=== PATIENT | female | born 1965 | race Hispanic/Latino ===

== ENCOUNTER 2017-02-01 01:30 | Inpatient (IN) | payer MEDICAID ==
--- NOTE | 2017-02-01 02:02 | C.PDOC ---
History Of Present Illness 51 y/o female presents to ED for psych admission from [facility] where she was medically cleared. Patient accepted by Dr. Cannon. Denies any acute complaints on arrival. Time Seen by Provider: 02/01/17 02:00 Chief Complaint (Nursing): Psychiatric Evaluation History Per: Patient History/Exam Limitations: no limitations Current Symptoms Are (Timing): Still Present Modifying Factor(s): None Recent travel outside of the [place]: No Past Medical History Reviewed: Historical Data, Nursing Documentation, Vital Signs Vital Signs: Last Vital Signs Temp 98 F 02/01/17 01:36 Pulse 63 02/01/17 01:36 Resp 20 02/01/17 01:36 BP 122/75 02/01/17 01:36 Pulse Ox 98 02/01/17 02:01 - Medical History PMH: Anxiety, Bipolar Disorder Surgical History: Cholecystectomy, Tonsillectomy Family History: States: Unknown Family Hx - Social History Hx Alcohol Use: No Hx Substance Use: No Review Of Systems Constitutional: Negative for: Fever, Chills Cardiovascular: Negative for: Chest Pain Respiratory: Negative for: Shortness of Breath Gastrointestinal: Negative for: Nausea, Vomiting Skin: Negative for: Rash Physical Exam - Physical Exam Appears: Non-toxic, No Acute Distress Skin: Warm, Dry Head: Atraumatic, Normacephalic Chest: Symmetrical Cardiovascular: Rhythm Regular Respiratory: No Rales, No Rhonchi, No Wheezing Extremity: Normal ROM, Capillary Refill (< 2 sec. ) Neurological/Psych: Oriented x3, Normal Speech ED Course And Treatment O2 Sat by Pulse Oximetry: 98 (RA) Pulse Ox Interpretation: Normal Disposition Discussed With : Junaid Cannon Comment: accepted the pt on his service and took over hte care at 2AM Doctor Will See Patient In The: Hospital Counseled Patient/Family Regarding: Studies Performed, Diagnosis - Disposition Disposition: HOSPITALIZED Disposition Time: 02:01 Condition: FAIR - POA Present On Arrival: None - Clinical Impression Clinical Impression: Bipolar 1 disorder, Anxiety - Scribe Statement The provider has reviewed the documentation as recorded by the Anitra Madnujano Provider Scribe Attestation: All medical record entries made by the Scribe were at my direction and personally dictated by me. I have reviewed the chart and agree that the record accurately reflects my personal performance of the history, physical exam, medical decision making, and the department course for this patient. I have also personally directed, reviewed, and agree with the discharge instructions and disposition. Decision To Admit - Pt Status Changed To: Hospital Disposition Of: Inpatient - Admit Certification Admit to Inpatient:: After my assessment, the patient will require hospitalization for at least two midnights. This is because of the severity of symptoms shown, intensity of services needed, and/or the medical risk in this patient being treated as an outpatient. - InPatient: Physician Admission Certification: I certify that this patient requires 2 or more midnights of care for the following reason:: After my assessment, the patient will require hospitalization for at least two midnights. This is because of the severity of symptoms shown, intensity of services needed, and/or the medical risk in this patient being treated as an outpatient. - . Bed Request Type: Psychiatry Admitting Physician: Junaid Cannon Patient Diagnosis: Bipolar 1 disorder, Anxiety
[2017-02-01] MEDS ORDERED: Pneumococcal 23-Valent Vaccine IM ONE (04:21)
--- NOTE | 2017-02-01 13:26 | PCM.PSYCH ---
Initial Psychiatric Evaluation - Initial Psychiatric Evaluation Type of Admission: Voluntary Legal Status: Capacity Chief Complaint (in patient's own words): "I have depression and anxiety" History of Present Illness and Precipitating Events: The patient is seen, chart reviewed and case discussed. This is a 51-year-old female, with 3 children, unemployed, living with and 2 younger children. The patient is here after she felt very depressed and suicidal and anxious. She claims that she had started Lexapro several years ago and last year decided to come off and she claims it was done too fast and she went down to 5 mg in June and then by cutting in half every week she stopped it around December and then she got extremely sick. She claims that she started to feel the withdrawals even back in September and then another doctor gave her some Ativan and than gabapentin but they did not help much. She reports extreme anxiety, tremors, feeling nauseous, headaches and several other somatic symptoms as part of her withdrawal syndrome. She denies feeling acutely suicidal and has no psychotic or manic symptoms. She denies drug or alcohol use. Past psych history: One admission many years ago with depression. 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 She is also not sure if she has hyperthyroidism or not because she had mixed results. She also claims she has frequent UTIs but it was not worked up. Current Medications: Active Medications Generic Name Dose Route Start Last Admin Trade Name Freq PRN Reason Stop Dose Admin Fluoxetine HCl 10 mg 02/01/17 13:00 Prozac PO DAILY SATNAM Gabapentin 100 mg 02/01/17 22:00 Neurontin PO HS SATNAM Hydroxyzine HCl 50 mg 02/01/17 09:38 Atarax PO Q6H PRN Anxiety Lorazepam 0.5 mg 02/01/17 12:46 Ativan PO Q8H PRN SEVERE Anxiety Trazodone HCl 50 mg 02/01/17 22:00 Desyrel PO HS PRN Insomnia Past Psychiatric History - Past Psychiatric History Previous Treatment History: Inpatient Pertinent Medical Hx (Current Medical&Sleep Prob, Allergies): Allergies Allergy/AdvReac Type Severity Reaction Status Date / Time Penicillins Allergy Verified 02/01/17 01:47 Escitalopram [Lexapro] 10 mg PO DAILY 02/01/17 Gabapentin [Neurontin] 100 mg PO DAILY 02/01/17 Review of Systems - Neurological Neurological: UNREMARKABLE - Psychiatric Psychiatric: Abnormal Sleep Pattern, Anxiety, Depression, Difficulty Concentrating, Irritability. absent: Hallucinations, Homicidal Ideation, Suicidal Ideation Mental Status Examination - Personal Presentation Personal Presentation: Looks stated age - Affect Affect: Broad - Motor Activity Motor Activity: Calm - Reliability in Providing Information Reliability in Providing Information: Good - Speech Speech: Organized - Mood Mood: Anxious - Formal Thought Process Formal Thought Process: No Impairment - Cognitive Functions Orientation: Person, Place, Situation, Time Sensorium: Alert Attention/Concentration: Attentive Estimate of Intelligence: Average Judgement: Intact, as evidence by: Insight regarding need for hospitalization Memory: Recent intact, as evidence by: Ability to recall events of the day, Remote intact, as evidenced by: Abilit to recall sig. life events - Risk Risk: Diminished functioning - Strength & Assets Inventory Strength & Assets Inventory: Cooperative - Limitations Limitations: Living alone DSM 5 DX - DSM 5 DSM 5 Diagnosis: Major depression, recurrent, moderate Generalized Anxiety d/o r/o Serotonin withdrawal syndrome - Recommended/Plan of Treatment Treatment Recommendations and Plan of Treatment: Prozac to replace lexapro due to low risk of wdw gabapetin and prn ativan for anxiety (or atarax for moderate) CBT and relaxation skills training Support and psychoed repeat [facility], [facility] TFTs Collateral info 32 min Projected ELOS: 4 days Prognosis: good Discharge Plan and Discharge Criteria: No severe sxs outpt psych referral
[2017-02-02 11:09] LABS: RBC URINE 16 /hpf (0-3); URINE BILIRUBIN NEGATIVE (NEGATIVE); URINE CALCIUM OXALATE CRYSTALS OCC /hpf (<OCC); URINE COLOR Yellow (YELLOW); URINE GLUCOSE (UA) NORMAL (Normal); URINE KETONE TRACE mg/dL (NEGATIVE); URINE LEUKOCYTE ESTERASE NEG Leu/uL (Negative); URINE PROTEIN NEGATIVE (NEGATIVE); WBC URINE 3 /hpf (0-5)
[2017-02-02 11:10] LABS: URINE BLOOD 1+ (NEGATIVE)
--- NOTE | 2017-02-02 17:11 | PCM.PYCHPN ---
Psychiatric Progress Note - Psychiatric Progress Note Patient seen today, length of contact: 15 minutes Patient Chief Complaint: "I am very very anxious" Problems Identified/Issues Discussed: The pt is seen, chart reviewed and case discussed. Pt appeared tearful and anxious. Pt is complaining of shakes nausea and gagging. Pt denies suicidal or homicidal ideations, visual or auditory hallucinations or persecutory delusions. Will be going to [facility] after discharge. SSRI discontinuation syndrome discussed. Prozac will also be stopped but it causes that problem the least. Medication Change: Yes (start prozac) Medical Record Reviewed: Yes Mental Status Examination - Cognitive Function Orientation: Person, Place, Situation, Time Memory: Intact Attention: WNL Concentration: Poor Association: WNL Fund of Knowledge: WNL - Mood Mood: Anxious - Affect Affect: Broad - Speech Speech: Appropriate - Formal Thought Process Formal Thought Process: No Impairment - Suicidal Ideation Suicidal Ideation: No - Homicidal Ideation Homicidal Ideation: No Goal/Treatment Plan - Goal/Treatment Plan Need for Continued Stay: Discharge may exacerbated symptoms, Severe functional impairment Progress Toward Problem(s) and Goals/Treatment Plan: Prozac to replace lexapro due to low risk of wdw gabapetin and prn ativan for anxiety (or atarax for moderate) CBT and relaxation skills training Support and psychoed repeat [facility]AMIN[facility] QUIRO[facility] Collateral info Estimated Date of D/C: 02/07/17
[2017-02-03] MEDS ORDERED: Magnesium Hydroxide Susp 30 ml UD PO ONE (12:53)
--- NOTE | 2017-02-03 15:46 | PCM.PYCHPN ---
Psychiatric Progress Note - Psychiatric Progress Note Patient seen today, length of contact: 15 minutes Patient Chief Complaint: "I am much better today" Problems Identified/Issues Discussed: The pt is seen, chart reviewed and case discussed. Pt is doing better, She slept well and her symptoms are resolving. She denies visual or auditory hallucinations, suicidal or homicidal ideations or persecutory delusions. Pt denies medication side effects. Will be going to [facility] after discharge. SSRI discontinuation syndrome discussed. Medication Change: Yes (start prozac) Medical Record Reviewed: Yes Mental Status Examination - Cognitive Function Orientation: Person, Place, Situation, Time Memory: Intact Attention: WNL Concentration: WNL Association: WNL Fund of Knowledge: WNL - Mood Mood: Neutral - Affect Affect: Broad - Speech Speech: Appropriate - Formal Thought Process Formal Thought Process: No Impairment - Suicidal Ideation Suicidal Ideation: No - Homicidal Ideation Homicidal Ideation: No Goal/Treatment Plan - Goal/Treatment Plan Need for Continued Stay: Discharge may exacerbated symptoms, Severe functional impairment Progress Toward Problem(s) and Goals/Treatment Plan: Prozac to replace lexapro due to low risk of wdw gabapetin and prn ativan for anxiety (or atarax for moderate) CBT and relaxation skills training Support and psychoed Video Intern called her with permission and left a vm Estimated Date of D/C: 02/07/17
[2017-02-04 07:28] VITALS: TEMP 98.1; O2SAT 99
[2017-02-04 09:01] LABS: FREE T4 1.01 ng/dL (0.78-2.19)
[2017-02-04 09:14] LABS: THYROID STIMULATING HORMONE 1.46 mIU/L (0.46-4.68)
--- NOTE | 2017-02-04 16:23 | PCM.PYCHPN ---
Psychiatric Progress Note - Psychiatric Progress Note Patient seen today, length of contact: 15 minutes Patient Chief Complaint: "I am much better today" Problems Identified/Issues Discussed: The pt is seen, chart reviewed and case discussed. Pt states that she is feeling good today. She slept well, and currently has no symptoms. Pt denies auditory or visual hallucinations, suicidal or homicidal ideations or persecutory delusions. She denies medication side effects and is going home after discharge. Medication Change: Yes (start prozac) Medical Record Reviewed: Yes Mental Status Examination - Cognitive Function Orientation: Person, Place, Situation, Time Memory: Intact Attention: WNL Concentration: WNL Association: WNL Fund of Knowledge: WNL - Mood Mood: Neutral - Affect Affect: Broad - Speech Speech: Appropriate - Formal Thought Process Formal Thought Process: No Impairment - Suicidal Ideation Suicidal Ideation: No - Homicidal Ideation Homicidal Ideation: No Goal/Treatment Plan - Goal/Treatment Plan Need for Continued Stay: Discharge may exacerbated symptoms, Severe functional impairment Progress Toward Problem(s) and Goals/Treatment Plan: Prozac to replace lexapro due to low risk of wdw gabapetin and prn ativan for anxiety (or atarax for moderate) CBT and relaxation skills training Support and psychoed Manager State called her with permission and left a vm Estimated Date of D/C: 02/06/17
--- NOTE | 2017-02-05 14:41 | PCM.PYCHPN ---
Psychiatric Progress Note - Psychiatric Progress Note Patient seen today, length of contact: 16 min Patient Chief Complaint: "I am OK" Problems Identified/Issues Discussed: The pt is seen, chart reviewed, case discussed with staff. The pt is compliant with medications and reports no side-effects. Symptoms are improving but needs more time to stabilize. After care discussed, support and psychoeducation given. Medication Change: No Medical Record Reviewed: Yes Mental Status Examination - Cognitive Function Orientation: Person, Place, Situation, Time Memory: Intact Attention: WNL Concentration: WNL Association: WNL Fund of Knowledge: WNL - Mood Mood: Neutral - Affect Affect: Broad - Speech Speech: Appropriate - Formal Thought Process Formal Thought Process: No Impairment - Suicidal Ideation Suicidal Ideation: No - Homicidal Ideation Homicidal Ideation: No Goal/Treatment Plan - Goal/Treatment Plan Need for Continued Stay: Discharge may exacerbated symptoms, Severe functional impairment Progress Toward Problem(s) and Goals/Treatment Plan: Prozac to replace lexapro due to low risk of wdw gabapetin and prn ativan for anxiety (or atarax for moderate) CBT and relaxation skills training Support and psychoed [employer] Supervisor called her with permission and left a vm Estimated Date of D/C: 02/06/17
[2017-02-06 07:46] VITALS: BP 132/87; PULSE 67; RESP 18
--- NOTE | 2017-02-06 09:25 | PCM.PYCHDC ---
Mental Status Examination - Mental Status Examination Orientation: Person, Place, Situation, Time Memory: Impaired Mood: Anxious Speech: Appropriate Attention: WNL Concentration: WNL Association: WNL Fund of Knowledge: WNL Formal Thought Process: No Impairment Suicidal Ideation: No Current Homicidal Ideation?: No Discharge Summary - Discharge Note Reason for Hospitalization: Severe depressive sxs and anxiety, SI. Consultations:: List each consultation separately and include: 1. Reason for request. 2. Findings. 3. Follow-up Summary of Hospital Course include:: 1. Description of specific treatment plan utilized for patients during their course of treatmen. 2. Summarize the time- course for resolution of acute symptoms and/or regressed behaviors. 3. Describe issues identified and worked on during hospitalization. 4. Describe medication utilized. 5. Describe medical problems identified and treated. 6. Reassessment of suicide risk Summary of Hospital Course: The patient is seen, chart reviewed and case discussed. On admission: This is a 51-year-old female, with 3 children, unemployed, living with and 2 younger children. The patient is here after she felt very depressed and suicidal and anxious. She claims that she had started Lexapro several years ago and last year decided to come off and she claims it was done too fast and she went down to 5 mg in June and then by cutting in half every week she stopped it around December and then she got extremely sick. She claims that she started to feel the withdrawals even back in September and then another doctor gave her some Ativan and than gabapentin but they did not help much. She reports extreme anxiety, tremors, feeling nauseous, headaches and several other somatic symptoms as part of her withdrawal syndrome. She denies feeling acutely suicidal and has no psychotic or manic symptoms. She denies drug or alcohol use. Past psych history: One admission many years ago with depression. 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 She is also not sure if she has hyperthyroidism or not because she had mixed results. She also claims she has frequent UTIs but it was not worked up. Hospital course: The pt was admitted and started on treatment with psychotherapy, support, psychoeducation and medications. CBT used. How to deal with dyscontinuation syndrome discussed. She is switched to Prozac which never causes wdw due to very long half-life. The pt attended groups and activities, as well as milieu therapy. All the risks and benefits of medications are discussed and the patient understood and agreed. After care discussed with the patient. She went to the same clinic. - Final Diagnosis (DSM 5) Condition upon Discharge: IMPROVED DSM 5: Major depression, recurrent, moderate Generalized Anxiety d/o r/o Serotonin withdrawal syndrome Disposition: HOME/ ROUTINE Follow-up Treatment Plan: Continue below medications after discharge. Follow after care plan as discussed. She will attend her outpatient program and psychiatrist in her town. Use relapse prevention skills Return to ER or call 911 if suicidal, homicidal or symptoms relapse. Stay away from stress, alcohol and drugs. How to wean off from Prozac discussed: 2 weeks one pill, then 2 weeks every other day, then every third day and stop. She is advised to use as needed meds if she happens to have wdw sxs, and reassurance given that this is temporary Prescriptions/Medication Reconciliation: FLUoxetine [Prozac] 10 mg PO DAILY #30 cap traZODone [Desyrel] 50 mg PO HS PRN #30 tab PRN Reason: Insomnia - Smoking Cessation Smoking Cessation Medication prescribed: No - Antipsychotic Medications Pt discharged on 2 or more routine antipsychotic medications: No
== END 2017-02-06 11:42 | disposition home or self-care (01) | DRG 430 ==
LOC: C.ER 01:30 → C.5E 02:02
PROVIDERS: ADMIT Psychiatry & Neurology Psychiatry; ATTEND Psychiatry & Neurology Psychiatry
PROC: GZ3ZZZZ Medication Management (ICD-10-PCS; principal; 2017-02-01)
PROC: GZ56ZZZ Individual Psychotherapy, Supportive (ICD-10-PCS; 2017-02-01)
DX: F33.1 Major depressive disorder, recurrent, moderate (principal); F41.1 Generalized anxiety disorder; F17.210 Nicotine dependence, cigarettes, uncomplicated; Z91.14 Patient's other noncompliance with medication regimen; Z87.440 Personal history of urinary (tract) infections; Z87.898 Personal history of other specified conditions